=== PATIENT | male | born 1990 | race Caucasian/White ===

== ENCOUNTER 2016-09-27 14:06 | Inpatient (IN) | payer MEDICARE, MEDICAID ==
[~2016-09-27] VITALS: Ht 193 cm; Wt 106.9 kg
[~2016-09-27 14:06] MED LIST: NICOTINE 21 MG/24 HOUR PATCH TD SCH
[2016-09-27] MEDS ORDERED: PALI39DI IM (14:29)
[2016-09-27] MEDS ORDERED: SERT50TA12 PO (14:29)
[2016-09-27] MEDS ORDERED: ZOLPIDEM TARTRATE 10 MG TABLET PO PRN (18:15)
[2016-09-27] MEDS ORDERED: LORazepam 1 MG TABLET PO ONE (18:30)
[2016-09-27 19:14] LABS: BASOPHILS # (AUTO) 0.04 K/uL (0.00-0.20); BASOPHILS % (AUTO) 0.3 % (0.0-2.0); EOSINOPHILS # (AUTO) 0.11 K/uL (0.00-0.70); EOSINOPHILS % (AUTO) 0.94 % (1.0-6.0); HEMATOCRIT 46.2 % (41-53); HEMOGLOBIN 15.7 g/dL (13.5-17.5); LYMPHOCYTES # (AUTO) 2.2 K/uL (1.0-4.8); LYMPHOCYTES % (AUTO) 19.3 % (22.0-44.0); MEAN CORPUSCULAR HEMOGLOBIN 32.3 pg (26.0-34.0); MEAN CORPUSCULAR VOLUME 95 fL (80-100); MONOCYTES # (AUTO) 0.9 K/uL (0.1-1.0); MONOCYTES % (AUTO) 8.1 % (2.0-9.0); NEUTROPHILS # (AUTO) 8.1 K/uL (1.8-7.7); NEUTROPHILS % (AUTO) 71.3 % (40.0-70.0); PLATELET COUNT (AUTO) 253 K/uL (150-450); RED BLOOD CELL COUNT(AUTO) 4.86 MIL/uL (4.50-5.90); WHITE BLOOD COUNT (AUTO) 11.3 K/uL (4.5-11.0)
[2016-09-27 19:25] LABS: ANION GAP 9 mmol/L (8-16); CALCIUM, TOTAL 9.3 mg/dL (8.8-10.5); CARBON DIOXIDE 30 mmol/L (22-29); CHLORIDE 102 mmol/L (98-107); CREATININE 1.22 mg/dL (0.60-1.30); GLOMERULAR FILTR. RATE CALC > 60 mL/min (>60); POTASSIUM 4.3 mmol/L (3.5-5.1); SODIUM SERUM 141 mmol/L (136-145); UREA NITROGEN, BLOOD 10 mg/dL (7-18)
[2016-09-27 19:32] LABS: ALANINE AMINOTRANSFERASE 24 U/L (12-78); ALBUMIN 3.9 g/dL (3.4-5.0); ASPARTATE AMINOTRANSFERASE 18 U/L (15-37); BILIRUBIN,TOTAL 0.3 mg/dL (0.1-1.0); TOTAL PROTEIN, SERUM 7.6 g/dL (6.4-8.2)
[2016-09-27 20:02] VITALS: BP 126/91
[2016-09-28 05:22] VITALS: BP 119/86
[2016-09-28] MEDS: LORazepam 2 MG TABLET PO PRN ×2 (07:00→16:21)
[2016-09-28] MEDS: HALOPERIDOL 5 MG TABLET PO PRN (07:00)
[2016-09-28] MEDS: SERTRALINE HCL 100 MG TABLET PO SCH (08:05)
[2016-09-28] MEDS ORDERED: NICOTINE 21 MG/24 HOUR PATCH TD SCH (09:00)
[2016-09-28 10:18] VITALS: BP 129/76
[2016-09-28 16:23] VITALS: BP 113/72
[2016-09-29 07:03] LABS: BASOPHILS % (AUTO) 0.4 % (0.0-2.0); EOSINOPHILS % (AUTO) 0.8 % (1.0-6.0); HEMATOCRIT 47.8 % (41-53); HEMOGLOBIN 15.9 g/dL (13.5-17.5); LYMPHOCYTES # (AUTO) 1.7 K/uL (1.0-4.8); LYMPHOCYTES % (AUTO) 15.2 % (22.0-44.0); MEAN CORPUSCULAR HEMOGLOBIN 31.7 pg (26.0-34.0); MEAN CORPUSCULAR HGB CONC 33.3 G/dL (31.0-37.0); MEAN CORPUSCULAR VOLUME 95 fL (80-100); MONOCYTES # (AUTO) 0.8 K/uL (0.1-1.0); MONOCYTES % (AUTO) 6.8 % (2.0-9.0); NEUTROPHILS # (AUTO) 8.8 K/uL (1.8-7.7); NEUTROPHILS % (AUTO) 76.8 % (40.0-70.0); PLATELET COUNT (AUTO) 238 K/uL (150-450); RED BLOOD CELL COUNT(AUTO) 5.02 MIL/uL (4.50-5.90); RED CELL DISTRIBUTION WIDTH 14.4 % (11.5-14.5); WHITE BLOOD COUNT (AUTO) 11.5 K/uL (4.5-11.0)
[2016-09-29 07:36] LABS: CHOL/HDL RATIO 3.5 (4.2-7.3); CREATINE KINASE, TOTAL 50 U/L (39-308); THYROID STIMULATING HORMONE 1.11 uIU/mL (0.36-3.74)
[2016-09-29 07:56] LABS: HEMOGLOBIN A1C 5.2 % (4.5-6.2)
[2016-09-29 08:30] VITALS: BP 113/61
[2016-09-29] MEDS: SERTRALINE HCL 100 MG TABLET PO SCH (09:06)
[2016-09-29] MEDS ORDERED: NICOTINE 21 MG/24 HOUR PATCH TD PRN (09:09)
[2016-09-29] MEDS: LORazepam 2 MG TABLET PO PRN ×3 (09:28→17:51)
[2016-09-29] MEDS: HALOPERIDOL 5 MG TABLET PO PRN ×2 (12:17→17:51)
[2016-09-29 17:05] VITALS: BP 126/69
[2016-09-30 08:00] VITALS: BP 115/76
[2016-09-30] MEDS: SERTRALINE HCL 100 MG TABLET PO SCH (08:20)
[2016-09-30] MEDS: LORazepam 2 MG TABLET PO PRN ×2 (08:21→17:25)
[2016-09-30] MEDS: HALOPERIDOL 5 MG TABLET PO PRN ×2 (08:21→17:25)
[2016-09-30 08:30] VITALS: BP 105/62
[2016-09-30 13:11] LABS: HEPATITIS Bs ANTIGEN SCREEN P Negative (Negative); HEPATITIS C AB SCREEN <0.1 s/co ratio (0.0-0.9)
[2016-09-30 16:47] VITALS: BP 100/68
[2016-09-30 17:23] VITALS: BP 126/78
[2016-10-01 08:00] VITALS: BP 116/67
[2016-10-01] MEDS: SERTRALINE HCL 100 MG TABLET PO SCH (08:42)
[2016-10-01] MEDS: LORazepam 2 MG TABLET PO PRN (09:06)
[2016-10-01] MEDS ORDERED: ACETAMINOPHEN 325 MG TABLET PO PRN (11:45)
[2016-10-01 13:30] LABS: ADD UA MICROSCOPIC NO; APPEARANCE,URINE CLEAR (CLEAR); GLUCOSE, URINE (UA) NEGATIVE (NEGATIVE); KETONES,URINE NEGATIVE (NEGATIVE); LEUKOCYTE ESTERASE ,URINE NEGATIVE (NEGATIVE); OCCULT BLOOD,URINE NEGATIVE (NEGATIVE); PROTEIN,URINE NEGATIVE (NEGATIVE)
[2016-10-01] MEDS ORDERED: PALI78DI IM (15:41)
[2016-10-01] MEDS ORDERED: SERT100T12 PO (15:41)
== END 2016-10-01 18:30 | disposition home or self-care (01) | DRG 885 ==
LOC: EMS 14:08 → 3EX 19:53
DX: F25.1 Schizoaffective disorder, depressive type (principal); R45.851 Suicidal ideations; F17.210 Nicotine dependence, cigarettes, uncomplicated; K59.00 Constipation, unspecified; Z81.8 Family history of other mental and behavioral disorders; Z79.899 Other long term (current) drug therapy
CPT/HCPCS: 80074; 82306; 82607; 82746; 83036; 83735; 84439; 84443; 86592; 99285; G0480

== ENCOUNTER 2016-10-05 15:47 | Inpatient (IN) | payer MEDICARE, MEDICAID ==
[~2016-10-05] VITALS: Ht 190.5 cm; Wt 106.8 kg
[~2016-10-05 15:47] MED LIST changes: -NICOTINE 21 MG/24 HOUR PATCH TD SCH; +PALI78DI IM; +SERT100T12 PO
[2016-10-05] MEDS ORDERED: ZOLPIDEM TARTRATE 10 MG TABLET PO PRN (17:45)
[2016-10-05] MEDS ORDERED: LORazepam 2 MG TABLET PO ONE (18:00)
[2016-10-05 18:03] LABS: BASOPHILS % (AUTO) 0.1 % (0.0-2.0); EOSINOPHILS % (AUTO) 0.5 % (1.0-6.0); HEMATOCRIT 45.7 % (41-53); HEMOGLOBIN 15.2 g/dL (13.5-17.5); LYMPHOCYTES # (AUTO) 1.5 K/uL (1.0-4.8); LYMPHOCYTES % (AUTO) 11.4 % (22.0-44.0); MEAN CORPUSCULAR HEMOGLOBIN 31.5 pg (26.0-34.0); MEAN CORPUSCULAR HGB CONC 33.3 G/dL (31.0-37.0); MEAN CORPUSCULAR VOLUME 94 fL (80-100); MONOCYTES # (AUTO) 0.8 K/uL (0.1-1.0); MONOCYTES % (AUTO) 5.9 % (2.0-9.0); NEUTROPHILS # (AUTO) 10.8 K/uL (1.8-7.7); NEUTROPHILS % (AUTO) 82.1 % (40.0-70.0); PLATELET COUNT (AUTO) 252 K/uL (150-450); RED BLOOD CELL COUNT(AUTO) 4.83 MIL/uL (4.50-5.90); RED CELL DISTRIBUTION WIDTH 14.2 % (11.5-14.5); WHITE BLOOD COUNT (AUTO) 13.1 K/uL (4.5-11.0)
[2016-10-05 18:14] LABS: ANION GAP 9 mmol/L (8-16); CALCIUM, TOTAL 9.2 mg/dL (8.8-10.5); CARBON DIOXIDE 28 mmol/L (22-29); CHLORIDE 103 mmol/L (98-107); CREATININE 0.95 mg/dL (0.60-1.30); GLOMERULAR FILTR. RATE CALC > 60 mL/min (>60); POTASSIUM 3.9 mmol/L (3.5-5.1); SODIUM SERUM 140 mmol/L (136-145); UREA NITROGEN, BLOOD 9 mg/dL (7-18)
[2016-10-05 18:20] LABS: ALANINE AMINOTRANSFERASE 27 U/L (12-78); ALBUMIN 3.7 g/dL (3.4-5.0); ASPARTATE AMINOTRANSFERASE 15 U/L (15-37); BILIRUBIN,TOTAL 0.3 mg/dL (0.1-1.0); TOTAL PROTEIN, SERUM 7.6 g/dL (6.4-8.2)
[2016-10-05 20:59] VITALS: BP 135/80
[2016-10-05] MEDS ORDERED: INFLUENZA VIRUS VACCINE QVS 2016-17 (3YR+)/PF 60 MCG/0.5 ML SYRINGE IM ONE (21:00)
[2016-10-05] MEDS ORDERED: PNEUMOCOCCAL VACCINE POLYVALENT 0.5 ML VIAL [PPSV23] IM ONE (21:00)
[2016-10-06 06:11] VITALS: BP 116/66
[2016-10-06 08:05] VITALS: BP 124/78
[2016-10-06] MEDS: SERTRALINE HCL 100 MG TABLET PO SCH (08:34)
[2016-10-06] MEDS: HALOPERIDOL 5 MG TABLET PO PRN (09:51)
[2016-10-06] MEDS: LORazepam 2 MG TABLET PO PRN (09:51)
[2016-10-06 16:19] VITALS: BP 101/63
[2016-10-07 03:41] VITALS: BP 105/58
[2016-10-07 08:00] VITALS: BP 101/61
[2016-10-07] MEDS: SERTRALINE HCL 100 MG TABLET PO SCH (08:41)
[2016-10-07] MEDS: LORazepam 2 MG TABLET PO PRN ×2 (10:35→17:00)
[2016-10-07] MEDS: HALOPERIDOL 5 MG TABLET PO PRN (10:35)
[2016-10-07 16:04] VITALS: BP 105/63
[2016-10-08 00:03] VITALS: BP 106/60
[2016-10-08 08:39] VITALS: BP 116/64
[2016-10-08] MEDS ORDERED: PALIPERIDONE PALMITATE 234 MG/1.5 ML SYRINGE IM SCH (09:00)
[2016-10-08] MEDS ORDERED: PALIPERIDONE PALMITATE 78 MG/0.5 ML SYRINGE IM SCH (09:00)
[2016-10-08] MEDS ORDERED: PALI234D IM (12:30)
== END 2016-10-08 15:15 | disposition home or self-care (01) | DRG 885 ==
LOC: EMS 15:49 → B2S 17:52
DX: F25.1 Schizoaffective disorder, depressive type (principal); R45.851 Suicidal ideations; D72.828 Other elevated white blood cell count; F17.210 Nicotine dependence, cigarettes, uncomplicated; K59.00 Constipation, unspecified; Z79.899 Other long term (current) drug therapy; Z28.21 Immunization not carried out because of patient refusal
CPT/HCPCS: 87081; 99285; G0480

== ENCOUNTER 2016-10-09 17:31 | Inpatient (IN) | payer MEDICARE, MEDICAID ==
[~2016-10-09] VITALS: Ht 190.5 cm; Wt 106.3 kg
[~2016-10-09 17:31] MED LIST changes: +PALI234D IM; -PALI78DI IM; -SERT100T12 PO
[2016-10-09 19:02] VITALS: BP 132/74
[2016-10-09] MEDS ORDERED: INFLUENZA VIRUS VACCINE QVS 2016-17 (3YR+)/PF 60 MCG/0.5 ML SYRINGE IM ONE (19:15)
[2016-10-09 19:36] VITALS: BP 130/81
[2016-10-10 06:58] VITALS: BP 108/63
[2016-10-10 08:30] VITALS: BP 126/76
[2016-10-10] MEDS: LORazepam 2 MG TABLET PO PRN ×2 (08:30→16:15)
[2016-10-10] MEDS: HALOPERIDOL 5 MG TABLET PO PRN ×2 (08:30→16:16)
[2016-10-10] MEDS: NICOTINE 21 MG/24 HOUR PATCH TD SCH (09:17)
[2016-10-10 09:34] LABS: BASOPHILS % (AUTO) 0.6 % (0.0-2.0); EOSINOPHILS % (AUTO) 1.9 % (1.0-6.0); HEMATOCRIT 47.3 % (41-53); HEMOGLOBIN 15.5 g/dL (13.5-17.5); LYMPHOCYTES % (AUTO) 28.4 % (22.0-44.0); MEAN CORPUSCULAR HEMOGLOBIN 31.3 pg (26.0-34.0); MEAN CORPUSCULAR HGB CONC 32.8 G/dL (31.0-37.0); MEAN CORPUSCULAR VOLUME 96 fL (80-100); MONOCYTES # (AUTO) 0.7 K/uL (0.1-1.0); MONOCYTES % (AUTO) 9.5 % (2.0-9.0); NEUTROPHILS # (AUTO) 4.3 K/uL (1.8-7.7); NEUTROPHILS % (AUTO) 59.6 % (40.0-70.0); PLATELET COUNT (AUTO) 275 K/uL (150-450); RED BLOOD CELL COUNT(AUTO) 4.94 MIL/uL (4.50-5.90); RED CELL DISTRIBUTION WIDTH 14.2 % (11.5-14.5); WHITE BLOOD COUNT (AUTO) 7.2 K/uL (4.5-11.0)
[2016-10-10 09:57] LABS: ALANINE AMINOTRANSFERASE 27 U/L (12-78); ALBUMIN 3.5 g/dL (3.4-5.0); ANION GAP 11 mmol/L (8-16); ASPARTATE AMINOTRANSFERASE 15 U/L (15-37); BILIRUBIN,TOTAL 0.3 mg/dL (0.1-1.0); CALCIUM, TOTAL 8.5 mg/dL (8.8-10.5); CARBON DIOXIDE 27 mmol/L (22-29); CHLORIDE 105 mmol/L (98-107); GLOMERULAR FILTR. RATE CALC > 60 mL/min (>60); POTASSIUM 4.1 mmol/L (3.5-5.1); SODIUM SERUM 143 mmol/L (136-145); TOTAL PROTEIN, SERUM 7.2 g/dL (6.4-8.2); UREA NITROGEN, BLOOD 11 mg/dL (7-18)
[2016-10-10 10:33] LABS: APPEARANCE,URINE CLEAR (CLEAR); GLUCOSE, URINE (UA) NEGATIVE (NEGATIVE); KETONES,URINE NEGATIVE (NEGATIVE); LEUKOCYTE ESTERASE ,URINE NEGATIVE (NEGATIVE); OCCULT BLOOD,URINE NEGATIVE (NEGATIVE); PROTEIN,URINE NEGATIVE (NEGATIVE)
[2016-10-10 10:51] LABS: ADD UA MICROSCOPIC NO
[2016-10-10 16:00] VITALS: BP 110/66
[2016-10-11 06:42] VITALS: BP 108/66
[2016-10-11 08:27] VITALS: BP 105/72
[2016-10-11] MEDS: NICOTINE 21 MG/24 HOUR PATCH TD SCH (08:46)
[2016-10-11] MEDS: LORazepam 2 MG TABLET PO PRN ×2 (10:16→17:00)
[2016-10-11] MEDS: HALOPERIDOL 5 MG TABLET PO PRN ×2 (10:16→17:00)
[2016-10-11 16:09] VITALS: BP 112/69
[2016-10-11] MEDS: ZOLPIDEM TARTRATE 10 MG TABLET PO PRN (21:35)
[2016-10-12 06:30] VITALS: BP 106/62
[2016-10-12] MEDS: LORazepam 2 MG TABLET PO PRN ×2 (08:33→13:24)
[2016-10-12] MEDS: NICOTINE 21 MG/24 HOUR PATCH TD SCH (08:33)
[2016-10-12] MEDS: HALOPERIDOL 5 MG TABLET PO PRN ×2 (08:33→13:24)
[2016-10-12 09:34] VITALS: BP 124/68
[2016-10-12] MEDS: ESCITALOPRAM OXALATE 10 MG TABLET PO SCH (10:11)
[2016-10-12] MEDS: BusPIRone HCL 5 MG TABLET PO SCH ×2 (13:24→17:14)
[2016-10-12 16:20] VITALS: BP 114/66
[2016-10-13 05:55] VITALS: BP 104/63
[2016-10-13] MEDS: ESCITALOPRAM OXALATE 10 MG TABLET PO SCH (08:14)
[2016-10-13] MEDS: BusPIRone HCL 5 MG TABLET PO SCH ×3 (08:14→16:38)
[2016-10-13] MEDS: NICOTINE 21 MG/24 HOUR PATCH TD SCH (08:15)
[2016-10-13] MEDS: LORazepam 2 MG TABLET PO PRN ×2 (08:45→16:17)
[2016-10-13] MEDS: HALOPERIDOL 5 MG TABLET PO PRN ×2 (08:45→17:21)
[2016-10-13 08:49] VITALS: BP 94/57
[2016-10-13] MEDS ORDERED: BISACODYL 5 MG EC TABLET PO PRN (09:45)
[2016-10-13 16:03] VITALS: BP 106/67
[2016-10-13] MEDS: ZOLPIDEM TARTRATE 10 MG TABLET PO PRN (20:07)
[2016-10-14 07:15] VITALS: BP 116/66
[2016-10-14 08:13] VITALS: BP 106/70
[2016-10-14] MEDS: ESCITALOPRAM OXALATE 10 MG TABLET PO SCH (09:48)
[2016-10-14] MEDS: NICOTINE 21 MG/24 HOUR PATCH TD SCH (09:48)
[2016-10-14] MEDS: BusPIRone HCL 5 MG TABLET PO SCH ×2 (09:48→13:54)
[2016-10-14] MEDS ORDERED: ESCI10TA PO (15:09)
[2016-10-14] MEDS ORDERED: BUSP5TAB20 PO (15:09)
[2016-10-14 16:00] VITALS: BP 118/67
== END 2016-10-14 17:00 | disposition home or self-care (01) | DRG 885 ==
LOC: B3A 18:47 → EDSTATUS 18:53
PROVIDERS: ADMIT Psychiatry & Neurology Child & Adolescent Psychiatry
DX: F25.1 Schizoaffective disorder, depressive type (principal); R45.851 Suicidal ideations; D72.828 Other elevated white blood cell count; F17.200 Nicotine dependence, unspecified, uncomplicated; F41.9 Anxiety disorder, unspecified; I95.9 Hypotension, unspecified; R00.0 Tachycardia, unspecified; K59.00 Constipation, unspecified; Z71.89 Other specified counseling; Z28.21 Immunization not carried out because of patient refusal
CPT/HCPCS: 87081

== ENCOUNTER 2016-10-20 05:45 | Inpatient (IN) | payer MEDICARE, MEDICAID ==
[~2016-10-20] VITALS: Ht 190.5 cm; Wt 105.3 kg
[~2016-10-20 05:45] MED LIST changes: +BUSP5TAB20 PO; +ESCI10TA PO; -PALI234D IM
[2016-10-20 06:55] LABS: EOSINOPHILS # (AUTO) 0.03 K/uL (0.00-0.70); EOSINOPHILS % (AUTO) 0.24 % (1.0-6.0); HEMATOCRIT 47.6 % (41-53); LYMPHOCYTES # (AUTO) 0.5 K/uL (1.0-4.8); LYMPHOCYTES % (AUTO) 3.5 % (22.0-44.0); MEAN CORPUSCULAR HEMOGLOBIN 31.5 pg (26.0-34.0); MEAN CORPUSCULAR HGB CONC 33.5 G/dL (31.0-37.0); MEAN CORPUSCULAR VOLUME 94 fL (80-100); MONOCYTES # (AUTO) 1.2 K/uL (0.1-1.0); MONOCYTES % (AUTO) 8.7 % (2.0-9.0); NEUTROPHILS # (AUTO) 12.3 K/uL (1.8-7.7); NEUTROPHILS % (AUTO) 87.6 % (40.0-70.0); PLATELET COUNT (AUTO) 236 K/uL (150-450); RED BLOOD CELL COUNT(AUTO) 5.06 MIL/uL (4.50-5.90); RED CELL DISTRIBUTION WIDTH 14.9 % (11.5-14.5)
[2016-10-20 07:12] LABS: ANION GAP 14 mmol/L (8-16); CALCIUM, TOTAL 8.9 mg/dL (8.8-10.5); CARBON DIOXIDE 21 mmol/L (22-29); CHLORIDE 99 mmol/L (98-107); CREATININE 1.24 mg/dL (0.60-1.30); GLOMERULAR FILTR. RATE CALC > 60 mL/min (>60); POTASSIUM 3.5 mmol/L (3.5-5.1); SODIUM SERUM 134 mmol/L (136-145); UREA NITROGEN, BLOOD 9 mg/dL (7-18)
[2016-10-20 07:20] LABS: ALANINE AMINOTRANSFERASE 25 U/L (12-78); ALBUMIN 3.8 g/dL (3.4-5.0); ASPARTATE AMINOTRANSFERASE 17 U/L (15-37); BILIRUBIN,TOTAL 0.4 mg/dL (0.1-1.0); TOTAL PROTEIN, SERUM 7.7 g/dL (6.4-8.2)
[2016-10-20 07:35] LABS: RBC MORPHOLOGY COMMENT NORMAL RBC MORPH
[2016-10-20 14:41] VITALS: BP 119/77
[2016-10-20] MEDS ORDERED: INFLUENZA VIRUS VACCINE QVS 2016-17 (3YR+)/PF 60 MCG/0.5 ML SYRINGE IM ONE (14:45)
[2016-10-20] MEDS: BusPIRone HCL 5 MG TABLET PO SCH ×2 (14:56→17:55)
[2016-10-20 16:00] VITALS: BP 113/74
[2016-10-20] MEDS: ONDANSETRON HCL 4 MG TABLET PO PRN (17:55)
[2016-10-20] MEDS: LOPERAMIDE HCL 2 MG CAPSULE PO PRN (17:55)
[2016-10-21 01:00] VITALS: BP 105/60
[2016-10-21 08:02] VITALS: BP 105/60
[2016-10-21 08:27] LABS: BASOPHILS # (AUTO) 0.02 K/uL (0.00-0.20); BASOPHILS % (AUTO) 0.3 % (0.0-2.0); EOSINOPHILS # (AUTO) 0.07 K/uL (0.00-0.70); EOSINOPHILS % (AUTO) 1.22 % (1.0-6.0); HEMATOCRIT 45.7 % (41-53); HEMOGLOBIN 15.4 g/dL (13.5-17.5); LYMPHOCYTES % (AUTO) 17.4 % (22.0-44.0); MEAN CORPUSCULAR HEMOGLOBIN 31.7 pg (26.0-34.0); MEAN CORPUSCULAR HGB CONC 33.7 G/dL (31.0-37.0); MEAN CORPUSCULAR VOLUME 94 fL (80-100); MONOCYTES # (AUTO) 1.3 K/uL (0.1-1.0); MONOCYTES % (AUTO) 22.9 % (2.0-9.0); NEUTROPHILS # (AUTO) 3.3 K/uL (1.8-7.7); NEUTROPHILS % (AUTO) 58.1 % (40.0-70.0); PLATELET COUNT (AUTO) 224 K/uL (150-450); RED BLOOD CELL COUNT(AUTO) 4.87 MIL/uL (4.50-5.90); RED CELL DISTRIBUTION WIDTH 14.6 % (11.5-14.5); WHITE BLOOD COUNT (AUTO) 5.6 K/uL (4.5-11.0)
[2016-10-21] MEDS: PANTOPRAZOLE SODIUM 40 MG DR TABLET PO SCH (09:03)
[2016-10-21] MEDS: BusPIRone HCL 5 MG TABLET PO SCH ×3 (09:03→17:05)
[2016-10-21] MEDS: ESCITALOPRAM OXALATE 10 MG TABLET PO SCH (09:03)
[2016-10-21] MEDS: LOPERAMIDE HCL 2 MG CAPSULE PO PRN ×2 (13:17→18:33)
[2016-10-21 16:10] VITALS: BP 122/63
[2016-10-21] MEDS: ONDANSETRON HCL 4 MG TABLET PO PRN (18:33)
[2016-10-21] MEDS: ZOLPIDEM TARTRATE 10 MG TABLET PO PRN (20:51)
[2016-10-22 06:09] VITALS: BP 107/67
[2016-10-22 08:02] VITALS: BP 107/64
[2016-10-22] MEDS: BusPIRone HCL 5 MG TABLET PO SCH ×3 (08:34→17:02)
[2016-10-22] MEDS: ESCITALOPRAM OXALATE 10 MG TABLET PO SCH (08:34)
[2016-10-22] MEDS: PANTOPRAZOLE SODIUM 40 MG DR TABLET PO SCH (08:34)
[2016-10-22] MEDS ORDERED: ESCITALOPRAM OXALATE 10 MG TABLET PO ONE (10:15)
[2016-10-22] MEDS: LOPERAMIDE HCL 2 MG CAPSULE PO PRN ×2 (10:59→18:30)
[2016-10-22 16:10] VITALS: BP 109/64
[2016-10-22] MEDS: LORazepam 2 MG TABLET PO PRN (17:46)
[2016-10-22] MEDS: ZOLPIDEM TARTRATE 10 MG TABLET PO PRN (21:29)
[2016-10-23 00:02] VITALS: BP 103/63
[2016-10-23 08:02] VITALS: BP 124/54
[2016-10-23] MEDS: PANTOPRAZOLE SODIUM 40 MG DR TABLET PO SCH (08:31)
[2016-10-23] MEDS: BusPIRone HCL 5 MG TABLET PO SCH ×3 (08:32→16:45)
[2016-10-23] MEDS: ESCITALOPRAM OXALATE 10 MG TABLET PO SCH (08:32)
[2016-10-23] MEDS ORDERED: ESCITALOPRAM OXALATE 10 MG TABLET PO SCH (09:00)
[2016-10-23] MEDS: LORazepam 2 MG TABLET PO PRN (10:12)
[2016-10-23] MEDS: HALOPERIDOL 5 MG TABLET PO PRN (10:12)
[2016-10-23 16:02] VITALS: BP 115/64
[2016-10-23] MEDS: ZOLPIDEM TARTRATE 10 MG TABLET PO PRN (21:31)
[2016-10-24 01:45] VITALS: BP 114/72
[2016-10-24 08:02] VITALS: BP 116/68
[2016-10-24 08:31] LABS: BASOPHILS % (AUTO) 0.4 % (0.0-2.0); EOSINOPHILS % (AUTO) 1.2 % (1.0-6.0); HEMATOCRIT 42.3 % (41-53); HEMOGLOBIN 14.1 g/dL (13.5-17.5); LYMPHOCYTES # (AUTO) 1.7 K/uL (1.0-4.8); LYMPHOCYTES % (AUTO) 30.9 % (22.0-44.0); MEAN CORPUSCULAR HEMOGLOBIN 31.4 pg (26.0-34.0); MEAN CORPUSCULAR HGB CONC 33.3 G/dL (31.0-37.0); MEAN CORPUSCULAR VOLUME 94 fL (80-100); MONOCYTES # (AUTO) 0.6 K/uL (0.1-1.0); MONOCYTES % (AUTO) 11.6 % (2.0-9.0); NEUTROPHILS # (AUTO) 3.1 K/uL (1.8-7.7); NEUTROPHILS % (AUTO) 55.9 % (40.0-70.0); PLATELET COUNT (AUTO) 236 K/uL (150-450); RED BLOOD CELL COUNT(AUTO) 4.48 MIL/uL (4.50-5.90); RED CELL DISTRIBUTION WIDTH 13.8 % (11.5-14.5); WHITE BLOOD COUNT (AUTO) 5.5 K/uL (4.5-11.0)
[2016-10-24] MEDS: PANTOPRAZOLE SODIUM 40 MG DR TABLET PO SCH (08:39)
[2016-10-24] MEDS: ESCITALOPRAM OXALATE 10 MG TABLET PO SCH (08:39)
[2016-10-24] MEDS: BusPIRone HCL 5 MG TABLET PO SCH ×3 (08:39→16:32)
[2016-10-24 08:43] LABS: ANION GAP 7 mmol/L (8-16); CALCIUM, TOTAL 8.5 mg/dL (8.8-10.5); CARBON DIOXIDE 29 mmol/L (22-29); CHLORIDE 106 mmol/L (98-107); CREATININE 0.98 mg/dL (0.60-1.30); GLOMERULAR FILTR. RATE CALC > 60 mL/min (>60); POTASSIUM 4.2 mmol/L (3.5-5.1); SODIUM SERUM 142 mmol/L (136-145); UREA NITROGEN, BLOOD 15 mg/dL (7-18)
[2016-10-24 10:02] LABS: CREATINE KINASE, TOTAL 58 U/L (39-308)
[2016-10-24 16:03] VITALS: BP 130/83
[2016-10-24] MEDS: LORazepam 2 MG TABLET PO PRN (17:35)
[2016-10-24] MEDS: ZOLPIDEM TARTRATE 10 MG TABLET PO PRN (20:56)
[2016-10-25 00:52] VITALS: BP 103/60
[2016-10-25 08:02] VITALS: BP 105/56
[2016-10-25] MEDS: BusPIRone HCL 5 MG TABLET PO SCH ×3 (08:30→16:53)
[2016-10-25] MEDS: ESCITALOPRAM OXALATE 10 MG TABLET PO SCH (08:31)
[2016-10-25] MEDS: PANTOPRAZOLE SODIUM 40 MG DR TABLET PO SCH (08:31)
[2016-10-25 09:36] LABS: BASOPHILS % (AUTO) 0.6 % (0.0-2.0); EOSINOPHILS % (AUTO) 1.4 % (1.0-6.0); HEMATOCRIT 43.5 % (41-53); HEMOGLOBIN 14.3 g/dL (13.5-17.5); LYMPHOCYTES # (AUTO) 1.9 K/uL (1.0-4.8); LYMPHOCYTES % (AUTO) 35.3 % (22.0-44.0); MEAN CORPUSCULAR HEMOGLOBIN 31.1 pg (26.0-34.0); MEAN CORPUSCULAR HGB CONC 32.8 G/dL (31.0-37.0); MEAN CORPUSCULAR VOLUME 95 fL (80-100); MONOCYTES # (AUTO) 0.5 K/uL (0.1-1.0); MONOCYTES % (AUTO) 9.3 % (2.0-9.0); NEUTROPHILS # (AUTO) 2.9 K/uL (1.8-7.7); NEUTROPHILS % (AUTO) 53.4 % (40.0-70.0); PLATELET COUNT (AUTO) 233 K/uL (150-450); RED BLOOD CELL COUNT(AUTO) 4.59 MIL/uL (4.50-5.90); RED CELL DISTRIBUTION WIDTH 14.3 % (11.5-14.5); WHITE BLOOD COUNT (AUTO) 5.5 K/uL (4.5-11.0)
[2016-10-25] MEDS: LORazepam 2 MG TABLET PO PRN (15:51)
[2016-10-25 16:02] VITALS: BP 114/65
[2016-10-25] MEDS: ZOLPIDEM TARTRATE 10 MG TABLET PO PRN (20:50)
[2016-10-26 00:02] VITALS: BP 102/61
[2016-10-26 08:02] VITALS: BP 107/56
[2016-10-26] MEDS: PANTOPRAZOLE SODIUM 40 MG DR TABLET PO SCH (08:38)
[2016-10-26] MEDS: ESCITALOPRAM OXALATE 10 MG TABLET PO SCH (08:38)
[2016-10-26] MEDS: BusPIRone HCL 5 MG TABLET PO SCH ×3 (08:38→16:33)
[2016-10-26] MEDS: LORazepam 2 MG TABLET PO PRN (13:59)
[2016-10-26 16:02] VITALS: BP 119/71
[2016-10-26] MEDS: ZOLPIDEM TARTRATE 10 MG TABLET PO PRN (21:10)
[2016-10-27 05:19] VITALS: BP 117/60
[2016-10-27 08:03] VITALS: BP 102/67
[2016-10-27] MEDS: PANTOPRAZOLE SODIUM 40 MG DR TABLET PO SCH (08:21)
[2016-10-27] MEDS: ESCITALOPRAM OXALATE 10 MG TABLET PO SCH (08:21)
[2016-10-27] MEDS: BusPIRone HCL 5 MG TABLET PO SCH ×3 (08:21→16:31)
[2016-10-27] MEDS: LORazepam 2 MG TABLET PO PRN ×2 (10:05→18:02)
[2016-10-27 16:12] VITALS: BP 106/65
[2016-10-28 01:23] VITALS: BP 102/61
[2016-10-28 08:02] VITALS: BP 119/60
[2016-10-28] MEDS: BusPIRone HCL 5 MG TABLET PO SCH ×3 (08:34→16:41)
[2016-10-28] MEDS: ESCITALOPRAM OXALATE 10 MG TABLET PO SCH (08:34)
[2016-10-28] MEDS: PANTOPRAZOLE SODIUM 40 MG DR TABLET PO SCH (08:34)
[2016-10-28] MEDS: LORazepam 2 MG TABLET PO PRN (12:31)
[2016-10-28] MEDS: HALOPERIDOL 5 MG TABLET PO PRN (15:53)
[2016-10-28 16:11] VITALS: BP 127/83
[2016-10-28 19:00] VITALS: BP 131/76
[2016-10-28] MEDS: IBUPROFEN 600 MG TABLET PO PRN (19:03)
[2016-10-28 21:09] VITALS: BP 113/84
[2016-10-28] MEDS: ACETAMINOPHEN 325 MG TABLET PO PRN (21:09)
[2016-10-28] MEDS: ZOLPIDEM TARTRATE 10 MG TABLET PO PRN (21:11)
[2016-10-29 00:13] VITALS: BP 102/71
[2016-10-29 08:07] VITALS: BP 109/63
[2016-10-29] MEDS: PANTOPRAZOLE SODIUM 40 MG DR TABLET PO SCH (08:35)
[2016-10-29] MEDS: BusPIRone HCL 5 MG TABLET PO SCH ×3 (08:35→16:31)
[2016-10-29] MEDS: ESCITALOPRAM OXALATE 10 MG TABLET PO SCH (08:35)
[2016-10-29] MEDS: LORazepam 2 MG TABLET PO PRN ×2 (12:39→18:41)
[2016-10-29 16:07] VITALS: BP 117/74
[2016-10-29 19:41] VITALS: BP 122/82
[2016-10-29] MEDS: IBUPROFEN 600 MG TABLET PO PRN (19:44)
[2016-10-29] MEDS: ZOLPIDEM TARTRATE 10 MG TABLET PO PRN (20:49)
[2016-10-30 00:02] VITALS: BP 103/61
[2016-10-30] MEDS: BusPIRone HCL 5 MG TABLET PO SCH ×3 (08:13→16:44)
[2016-10-30] MEDS: PANTOPRAZOLE SODIUM 40 MG DR TABLET PO SCH (08:13)
[2016-10-30] MEDS: ESCITALOPRAM OXALATE 10 MG TABLET PO SCH (08:13)
[2016-10-30 08:46] VITALS: BP 103/62
[2016-10-30 10:00] VITALS: BP 122/71
[2016-10-30] MEDS: LORazepam 2 MG TABLET PO PRN ×2 (10:00→14:12)
[2016-10-30 16:02] VITALS: BP 107/72
[2016-10-30] MEDS: ZOLPIDEM TARTRATE 10 MG TABLET PO PRN (20:43)
[2016-10-31 00:30] VITALS: BP 108/64
[2016-10-31 08:02] VITALS: BP 109/67
[2016-10-31] MEDS: BusPIRone HCL 5 MG TABLET PO SCH ×3 (08:23→16:32)
[2016-10-31] MEDS: ESCITALOPRAM OXALATE 10 MG TABLET PO SCH (08:23)
[2016-10-31] MEDS: PANTOPRAZOLE SODIUM 40 MG DR TABLET PO SCH (08:23)
[2016-10-31] MEDS: LORazepam 2 MG TABLET PO PRN ×2 (11:02→17:06)
[2016-10-31 16:04] VITALS: BP 105/66
[2016-10-31 17:00] VITALS: BP 109/68
[2016-10-31 19:31] VITALS: BP 125/76
[2016-10-31] MEDS: IBUPROFEN 600 MG TABLET PO PRN (19:32)
[2016-10-31] MEDS: ZOLPIDEM TARTRATE 10 MG TABLET PO PRN (20:50)
[2016-11-01 00:02] VITALS: BP 109/68
[2016-11-01 03:18] VITALS: BP 107/77
[2016-11-01] MEDS: LORazepam 2 MG TABLET PO PRN ×3 (03:20→16:20)
[2016-11-01] MEDS: IBUPROFEN 600 MG TABLET PO PRN ×2 (03:21→10:46)
[2016-11-01 08:02] VITALS: BP 110/54
[2016-11-01] MEDS: PANTOPRAZOLE SODIUM 40 MG DR TABLET PO SCH (08:40)
[2016-11-01] MEDS: BusPIRone HCL 5 MG TABLET PO SCH ×3 (08:40→16:20)
[2016-11-01] MEDS: ESCITALOPRAM OXALATE 10 MG TABLET PO SCH (08:40)
[2016-11-01 10:46] VITALS: BP 114/62
[2016-11-01 16:18] VITALS: BP 109/84
[2016-11-01] MEDS: DOXYCYCLINE 100 MG CAPSULE PO SCH (16:20)
[2016-11-01 18:42] VITALS: BP 118/86
[2016-11-01] MEDS: ACETAMINOPHEN 325 MG TABLET PO PRN (18:43)
[2016-11-01] MEDS: ZOLPIDEM TARTRATE 10 MG TABLET PO PRN (20:53)
[2016-11-02 00:23] VITALS: BP 108/75
[2016-11-02] MEDS: IBUPROFEN 600 MG TABLET PO PRN ×2 (00:28→08:42)
[2016-11-02] MEDS: LORazepam 2 MG TABLET PO PRN (00:28)
[2016-11-02 01:28] VITALS: BP 110/79
[2016-11-02] MEDS: BusPIRone HCL 5 MG TABLET PO SCH (08:42)
[2016-11-02] MEDS: DOXYCYCLINE 100 MG CAPSULE PO SCH (08:42)
[2016-11-02] MEDS: ESCITALOPRAM OXALATE 10 MG TABLET PO SCH (08:42)
[2016-11-02] MEDS: PANTOPRAZOLE SODIUM 40 MG DR TABLET PO SCH (08:42)
[2016-11-02 08:44] VITALS: BP 106/63
[2016-11-02] MEDS ORDERED: DOXY100C PO (08:54)
[2016-11-02] MEDS ORDERED: PANT40TA25 PO (08:54)
[2016-11-02] MEDS ORDERED: BUSP5TAB20 PO (09:06)
[2016-11-02] MEDS ORDERED: ESCI10TA PO (09:06)
[2016-11-05] MEDS ORDERED: PALIPERIDONE PALMITATE 234 MG/1.5 ML SYRINGE IM SCH ×2 (09:00→21:00)
== END 2016-11-02 10:00 | disposition home or self-care (01) | DRG 885 ==
LOC: EMS 05:48 → B2X 13:02
DX: F25.1 Schizoaffective disorder, depressive type (principal); E87.1 Hypo-osmolality and hyponatremia; R45.851 Suicidal ideations; E83.51 Hypocalcemia; F41.9 Anxiety disorder, unspecified; F17.210 Nicotine dependence, cigarettes, uncomplicated; R19.7 Diarrhea, unspecified; F31.9 Bipolar disorder, unspecified; K21.9 Gastro-esophageal reflux disease without esophagitis; K29.70 Gastritis, unspecified, without bleeding; Z79.899 Other long term (current) drug therapy; Z91.14 Patient's other noncompliance with medication regimen; Z28.21 Immunization not carried out because of patient refusal
CPT/HCPCS: 83735; 87081; 99285; G0480; Q0162

== ENCOUNTER 2016-11-13 09:56 | Emergency (ER) | payer MEDICARE, OTHER ==
[~2016-11-13] VITALS: Ht 190.5 cm; Wt 97.7 kg
[~2016-11-13 09:56] MED LIST changes: +DOXY100C PO; +PANT40TA25 PO
[2016-11-13 10:34] LABS: BASOPHILS % (AUTO) 0.3 % (0.0-2.0); EOSINOPHILS % (AUTO) 0.2 % (1.0-6.0); HEMATOCRIT 43.1 % (41-53); HEMOGLOBIN 14.3 g/dL (13.5-17.5); LYMPHOCYTES # (AUTO) 1.3 K/uL (1.0-4.8); LYMPHOCYTES % (AUTO) 10.9 % (22.0-44.0); MEAN CORPUSCULAR HEMOGLOBIN 31.4 pg (26.0-34.0); MEAN CORPUSCULAR HGB CONC 33.1 G/dL (31.0-37.0); MEAN CORPUSCULAR VOLUME 95 fL (80-100); MONOCYTES # (AUTO) 0.8 K/uL (0.1-1.0); MONOCYTES % (AUTO) 6.7 % (2.0-9.0); NEUTROPHILS # (AUTO) 9.4 K/uL (1.8-7.7); NEUTROPHILS % (AUTO) 81.9 % (40.0-70.0); PLATELET COUNT (AUTO) 262 K/uL (150-450); RED BLOOD CELL COUNT(AUTO) 4.55 MIL/uL (4.50-5.90); RED CELL DISTRIBUTION WIDTH 14.3 % (11.5-14.5); WHITE BLOOD COUNT (AUTO) 11.5 K/uL (4.5-11.0)
[2016-11-13 10:45] LABS: ANION GAP 5 mmol/L (8-16); CALCIUM, TOTAL 8.7 mg/dL (8.8-10.5); CARBON DIOXIDE 30 mmol/L (22-29); CHLORIDE 102 mmol/L (98-107); CREATININE 1.07 mg/dL (0.60-1.30); GLOMERULAR FILTR. RATE CALC > 60 mL/min (>60); POTASSIUM 3.6 mmol/L (3.5-5.1); SODIUM SERUM 137 mmol/L (136-145); UREA NITROGEN, BLOOD 7 mg/dL (7-18)
[2016-11-13 10:51] LABS: ALANINE AMINOTRANSFERASE 21 U/L (12-78); ALBUMIN 3.4 g/dL (3.4-5.0); ASPARTATE AMINOTRANSFERASE 12 U/L (15-37); BILIRUBIN,TOTAL 0.2 mg/dL (0.1-1.0); TOTAL PROTEIN, SERUM 6.5 g/dL (6.4-8.2)
[2016-11-13] MEDS ORDERED: LORazepam 2 MG TABLET PO ONE (12:15)
[2016-11-13 12:26] VITALS: BP 122/87
== END 2016-11-13 12:33 | disposition home or self-care (01) ==
LOC: EMS 09:59
DX: F25.9 Schizoaffective disorder, unspecified (principal); F32.9 Major depressive disorder, single episode, unspecified; F17.210 Nicotine dependence, cigarettes, uncomplicated
CPT/HCPCS: 36415; 80053; 80307; 85025; 99284; G0480

== ENCOUNTER 2018-02-27 18:56 | Emergency (ER) | payer MEDICARE, OTHER ==
[~2018-02-27] VITALS: Ht 193 cm; Wt 104.5 kg
[~2018-02-27 18:56] MED LIST changes: -DOXY100C PO; -PANT40TA25 PO
[2018-02-27 21:18] LABS: BASOPHILS % (AUTO) 0.4 % (0.0-2.0); HEMATOCRIT 43.4 % (41-53); HEMOGLOBIN 14.9 g/dL (13.5-17.5); LYMPHOCYTES # (AUTO) 2.2 K/uL (1.0-4.8); LYMPHOCYTES % (AUTO) 21.1 % (22.0-44.0); MEAN CORPUSCULAR HEMOGLOBIN 32.4 pg (26.0-34.0); MEAN CORPUSCULAR HGB CONC 34.5 G/dL (31.0-37.0); MEAN CORPUSCULAR VOLUME 94 fL (80-100); MONOCYTES % (AUTO) 9.4 % (2.0-9.0); NEUTROPHILS # (AUTO) 7.1 K/uL (1.8-7.7); NEUTROPHILS % (AUTO) 68.1 % (40.0-70.0); PLATELET COUNT (AUTO) 248 K/uL (150-450); RED BLOOD CELL COUNT(AUTO) 4.61 MIL/uL (4.50-5.90); RED CELL DISTRIBUTION WIDTH 13.3 % (11.5-14.5)
[2018-02-27 21:22] LABS: ANION GAP 8 mmol/L (8-16); CALCIUM, TOTAL 9.1 mg/dL (8.8-10.5); CARBON DIOXIDE 30 mmol/L (22-29); CHLORIDE 102 mmol/L (98-107); CREATININE 1.14 mg/dL (0.60-1.30); GLOMERULAR FILTR. RATE CALC > 60 mL/min (>60); GLUCOSE,RANDOM 99 mg/dL (70-110); POTASSIUM 3.8 mmol/L (3.5-5.1); SODIUM SERUM 140 mmol/L (136-145); UREA NITROGEN, BLOOD 10 mg/dL (7-18)
[2018-02-27 21:26] LABS: PROTHROMBIN TIME 10.1 SEC (9.4-11.6)
[2018-02-27 21:47] LABS: ALANINE AMINOTRANSFERASE 29 U/L (12-78); ALBUMIN 3.7 g/dL (3.4-5.0); ALKALINE PHOSPHATASE 98 U/L (46-116); ASPARTATE AMINOTRANSFERASE 18 U/L (15-37); BILIRUBIN,TOTAL 0.3 mg/dL (0.1-1.0); CREATINE KINASE MB 1.1 ng/mL (0-5); CREATINE KINASE, TOTAL 131 U/L (39-308)
[2018-02-27] MEDS ORDERED: LORazepam 1 MG TABLET PO ONE (22:15)
[2018-02-27 22:30] LABS: AMPHET/METH SCREEN,URINE NEGATIVE (NEGATIVE); BARBITURATE SCREEN, URINE NEGATIVE (NEGATIVE); BENZODIAZEPINES SCREEN,URINE NEGATIVE (NEGATIVE); CANNABINOID SCREEN,URINE NEGATIVE (NEGATIVE); COCAINE SCREEN,URINE NEGATIVE (NEGATIVE); METHADONE SCREEN, URINE NEGATIVE (NEGATIVE); OPIATE SCREEN,URINE NEGATIVE (NEGATIVE)
[2018-02-27 22:34] LABS: PHENCYCLIDINE SCREEN,URINE NEGATIVE (NEGATIVE)
[2018-02-28 00:04] VITALS: BP 125/79
== END 2018-02-28 00:07 | disposition home or self-care (01) ==
LOC: EMS 18:57
DX: F41.9 Anxiety disorder, unspecified (principal); F25.9 Schizoaffective disorder, unspecified; F32.9 Major depressive disorder, single episode, unspecified; F17.210 Nicotine dependence, cigarettes, uncomplicated; Z79.899 Other long term (current) drug therapy
CPT/HCPCS: 93005; 99285; 99406

== ENCOUNTER 2019-09-17 11:48 | Inpatient (IN) | payer MEDICARE, MEDICAID ==
[~2019-09-17] VITALS: Ht 190.5 cm; Wt 99.8 kg
[~2019-09-17 11:48] MED LIST changes: +FLUT1BLS IH; +GABA-531 PO; +IPRAHFA IH; +QUET200T PO; +QUET25TA PO; +TRAZ-257 PO
[2019-09-17 13:17] LABS: BASOPHILS % (AUTO) 0.6 % (0.0-2.0); EOSINOPHILS % (AUTO) 0.1 % (1.0-6.0); HEMATOCRIT 44.7 % (41-53); LYMPHOCYTES # (AUTO) 1.5 K/uL (1.0-4.8); LYMPHOCYTES % (AUTO) 12.7 % (22.0-44.0); MEAN CORPUSCULAR HEMOGLOBIN 32.4 pg (26.0-34.0); MEAN CORPUSCULAR HGB CONC 33.5 G/dL (31.0-37.0); MEAN CORPUSCULAR VOLUME 97 fL (80-100); MONOCYTES # (AUTO) 0.7 K/uL (0.1-1.0); MONOCYTES % (AUTO) 5.7 % (2.0-9.0); NEUTROPHILS # (AUTO) 9.8 K/uL (1.8-7.7); NEUTROPHILS % (AUTO) 80.9 % (40.0-70.0); PLATELET COUNT (AUTO) 225 K/uL (150-450); RED BLOOD CELL COUNT(AUTO) 4.61 MIL/uL (4.50-5.90); RED CELL DISTRIBUTION WIDTH 13.8 % (11.5-14.5)
[2019-09-17] MEDS ORDERED: IPRATROPIUM BROMIDE 0.5 MG/2.5 ML NEB SOLUTION NEB ONE (13:30)
[2019-09-17] MEDS ORDERED: ALBUTEROL SULFATE 2.5 MG/0.5 ML NEB SOLUTION NEB ONE (13:30)
[2019-09-17] MEDS ORDERED: HALOPERIDOL 5 MG TABLET PO PRN (13:30)
[2019-09-17] MEDS ORDERED: LORazepam 2 MG TABLET PO PRN (13:30)
[2019-09-17] MEDS ORDERED: ZOLPIDEM TARTRATE 10 MG TABLET PO PRN (13:30)
[2019-09-17] MEDS ORDERED: DiphenhydrAMINE HCL 50 MG/ML VIAL IM ONE (13:30)
[2019-09-17] MEDS ORDERED: HALOPERIDOL LACTATE 5 MG/ML VIAL IM ONE (13:30)
[2019-09-17] MEDS ORDERED: LORazepam 2 MG/ML VIAL IM ONE (13:30)
[2019-09-17 13:36] LABS: ANION GAP 11 mmol/L (8-16); CALCIUM, TOTAL 9.2 mg/dL (8.8-10.5); CARBON DIOXIDE 26 mmol/L (22-29); CHLORIDE 100 mmol/L (98-107); CREATININE 0.99 mg/dL (0.60-1.30); GLOMERULAR FILTR. RATE CALC > 60 mL/min (>60); GLUCOSE,RANDOM 98 mg/dL (70-110); POTASSIUM 3.7 mmol/L (3.5-5.1); SODIUM SERUM 137 mmol/L (136-145); UREA NITROGEN, BLOOD 10 mg/dL (7-18)
[2019-09-17 13:41] LABS: ALANINE AMINOTRANSFERASE 23 U/L (12-78); ALBUMIN 4.1 g/dL (3.4-5.0); ALKALINE PHOSPHATASE 88 U/L (46-116); ASPARTATE AMINOTRANSFERASE 15 U/L (15-37); BILIRUBIN,TOTAL 0.4 mg/dL (0.1-1.0); TOTAL PROTEIN, SERUM 7.2 g/dL (6.4-8.2)
[2019-09-17 13:45] LABS: AMPHET/METH SCREEN,URINE NEGATIVE (NEGATIVE); BARBITURATE SCREEN, URINE NEGATIVE (NEGATIVE); BENZODIAZEPINES SCREEN,URINE NEGATIVE (NEGATIVE); CANNABINOID SCREEN,URINE NEGATIVE (NEGATIVE); COCAINE SCREEN,URINE NEGATIVE (NEGATIVE); METHADONE SCREEN, URINE NEGATIVE (NEGATIVE); OPIATE SCREEN,URINE NEGATIVE (NEGATIVE); PHENCYCLIDINE SCREEN,URINE NEGATIVE (NEGATIVE)
[2019-09-17 13:48] LABS: APPEARANCE,URINE CLEAR (CLEAR); BILIRUBIN,URINE NEGATIVE (NEGATIVE); GLUCOSE, URINE (UA) NEGATIVE (NEGATIVE); KETONES,URINE TRACE mg/dL (NEGATIVE); LEUKOCYTE ESTERASE ,URINE NEGATIVE (NEGATIVE); NITRATE,URINE NEGATIVE (NEGATIVE); OCCULT BLOOD,URINE NEGATIVE (NEGATIVE); PROTEIN,URINE NEGATIVE (NEGATIVE); UROBILINOGEN,URINE 0.2 mg/dL (<=1.0)
[2019-09-17 17:27] VITALS: BP 107/68
[2019-09-17] MEDS ORDERED: PETROLATUM,WHITE 28 GM JELLY TP PRN (17:45)
[2019-09-17] MEDS ORDERED: MAG HYDROX/AL HYDROX/SIMETH ES 30 ML SUSPENSION UDCUP PO PRN (17:45)
[2019-09-17] MEDS ORDERED: CloNIDine HCL 0.1 MG TABLET PO PRN (17:45)
[2019-09-17] MEDS ORDERED: LOPERAMIDE HCL 2 MG CAPSULE PO PRN (17:45)
[2019-09-17] MEDS ORDERED: ACETAMINOPHEN 325 MG TABLET PO PRN (17:45)
[2019-09-17] MEDS ORDERED: ONDANSETRON HCL 4 MG TABLET PO PRN (17:45)
[2019-09-17] MEDS ORDERED: MAGNESIUM HYDROXIDE SUSPENSION 30 ML UDCUP PO PRN (17:45)
[2019-09-17] MEDS ORDERED: GuaiFENesin/D-METHORPHAN [SUGAR-FREE] 200-20MG/10 ML SYRUP UDCUP PO PRN (17:45)
[2019-09-17] MEDS ORDERED: IBUPROFEN 400 MG TABLET PO PRN (17:45)
[2019-09-17] MEDS ORDERED: DOCUSATE SODIUM 100 MG CAPSULE PO PRN (17:45)
[2019-09-18] MEDS ORDERED: INFLUENZA VIRUS VACCINE QVS 2019-20 (3YR+)/PF 60 MCG/0.5 ML SYRINGE IM ONE (01:45)
[2019-09-18 03:29] VITALS: BP 112/65
[2019-09-18 07:29] LABS: BASOPHILS % (AUTO) 0.2 % (0.0-2.0); EOSINOPHILS % (AUTO) 1.2 % (1.0-6.0); HEMOGLOBIN 15.5 g/dL (13.5-17.5); LYMPHOCYTES # (AUTO) 1.9 K/uL (1.0-4.8); LYMPHOCYTES % (AUTO) 25.5 % (22.0-44.0); MEAN CORPUSCULAR HEMOGLOBIN 33.1 pg (26.0-34.0); MEAN CORPUSCULAR HGB CONC 33.6 G/dL (31.0-37.0); MEAN CORPUSCULAR VOLUME 98 fL (80-100); MONOCYTES # (AUTO) 0.7 K/uL (0.1-1.0); MONOCYTES % (AUTO) 9.3 % (2.0-9.0); NEUTROPHILS # (AUTO) 4.8 K/uL (1.8-7.7); NEUTROPHILS % (AUTO) 63.8 % (40.0-70.0); PLATELET COUNT (AUTO) 250 K/uL (150-450); RED BLOOD CELL COUNT(AUTO) 4.68 MIL/uL (4.50-5.90); RED CELL DISTRIBUTION WIDTH 14.1 % (11.5-14.5)
[2019-09-18 07:49] LABS: HEMOGLOBIN A1C 5.1 % (3.8-5.6)
[2019-09-18 08:02] LABS: ALANINE AMINOTRANSFERASE 23 U/L (12-78); ALBUMIN 3.9 g/dL (3.4-5.0); ALKALINE PHOSPHATASE 84 U/L (46-116); ANION GAP 11 mmol/L (8-16); ASPARTATE AMINOTRANSFERASE 21 U/L (15-37); BILIRUBIN,TOTAL 0.4 mg/dL (0.1-1.0); CALCIUM, TOTAL 9.5 mg/dL (8.8-10.5); CARBON DIOXIDE 26 mmol/L (22-29); CHLORIDE 107 mmol/L (98-107); CHOL/HDL RATIO 3.9 (4.2-7.3); CHOLESTEROL 139 mg/dL (131-200); CREATININE 1.17 mg/dL (0.60-1.30); FREE T4 (FREE THYROXINE) 1.29 ng/dL (0.76-1.46); GLOMERULAR FILTR. RATE CALC > 60 mL/min (>60); GLUCOSE,RANDOM 95 mg/dL (70-110); HDL CHOLESTEROL 36 mg/dL (40-60); LDL CHOL (CALC.) 87 mg/dL (0-130); SODIUM SERUM 144 mmol/L (136-145); THYROID STIMULATING HORMONE 1.01 uIU/mL (0.36-3.74); TOTAL PROTEIN, SERUM 7.3 g/dL (6.4-8.2); TRIGLYCERIDES 78 mg/dL (15-150); UREA NITROGEN, BLOOD 13 mg/dL (7-18)
[2019-09-18 08:47] VITALS: BP 118/82
[2019-09-18] MEDS ORDERED: IPRATROPIUM BROMIDE HFA 17 MCG/PUFF 12.9 GM INHALER IH SCH (09:00)
[2019-09-18] MEDS: IPRATROPIUM BROMIDE HFA 17 MCG/PUFF 12.9 GM INHALER IH SCH (09:48)
[2019-09-18] MEDS: FLUTICASONE/VILANTEROL 200-25 MCG/INH INHALER [14] IH SCH (09:48)
[2019-09-18] MEDS: NICOTINE 14 MG/24 HOUR PATCH TD SCH (09:49)
[2019-09-18] MEDS: ALBUTEROL SULFATE HFA 90 MCG/PUFF 8 GM INHALER IH PRN (13:18)
[2019-09-18 16:05] VITALS: BP 126/76
[2019-09-19] MEDS: ALBUTEROL SULFATE HFA 90 MCG/PUFF 8 GM INHALER IH PRN (04:46)
[2019-09-19] MEDS: NICOTINE 14 MG/24 HOUR PATCH TD SCH (08:11)
[2019-09-19 08:30] VITALS: BP 136/80
[2019-09-19] MEDS: FLUTICASONE/VILANTEROL 200-25 MCG/INH INHALER [14] IH SCH (09:55)
[2019-09-19] MEDS: IPRATROPIUM BROMIDE HFA 17 MCG/PUFF 12.9 GM INHALER IH SCH (09:55)
[2019-09-19] MEDS ORDERED: FLUT1AER IH (11:32)
[2019-09-19] MEDS ORDERED: IPRAHFA IH (11:32)
== END 2019-09-19 13:00 | disposition home or self-care (01) | DRG 885 ==
LOC: EMS 11:50 → B2X 15:33
PROVIDERS: ADMIT Psychiatry & Neurology Psychiatry; ATTEND Psychiatry & Neurology Psychiatry
DX: F25.1 Schizoaffective disorder, depressive type (principal); R45.851 Suicidal ideations; F17.210 Nicotine dependence, cigarettes, uncomplicated; I10 Essential (primary) hypertension; J45.909 Unspecified asthma, uncomplicated; Z28.21 Immunization not carried out because of patient refusal
CPT/HCPCS: 83036; 84439; 84443; 94640; 96372; G0480; J1200; J1630; J2060; J3535

== ENCOUNTER 2021-02-09 14:28 | Emergency (ER) | payer MEDICARE, MEDICAID ==
[~2021-02-09] VITALS: Ht 193 cm; Wt 102.0 kg
[~2021-02-09 14:28] MED LIST changes: -BUSP5TAB20 PO; -ESCI10TA PO; -GABA-531 PO; -QUET200T PO; -QUET25TA PO; -TRAZ-257 PO
[2021-02-09] MEDS ORDERED: HALOPERIDOL 5 MG TABLET PO ONE (14:45)
[2021-02-09 15:00] LABS: BASOPHILS % (AUTO) 0.4 % (0.0-2.0); EOSINOPHILS % (AUTO) 0.9 % (1.0-6.0); HEMATOCRIT 45.1 % (41-53); HEMOGLOBIN 15.3 g/dL (13.5-17.5); LYMPHOCYTES # (AUTO) 1.9 K/uL (1.0-4.8); LYMPHOCYTES % (AUTO) 17.4 % (22.0-44.0); MEAN CORPUSCULAR HEMOGLOBIN 32.6 pg (26.0-34.0); MEAN CORPUSCULAR HGB CONC 33.9 G/dL (31.0-37.0); MEAN CORPUSCULAR VOLUME 96 fL (80-100); MONOCYTES % (AUTO) 9.1 % (2.0-9.0); NEUTROPHILS % (AUTO) 72.2 % (40.0-70.0); PLATELET COUNT (AUTO) 249 K/uL (150-450); RED BLOOD CELL COUNT(AUTO) 4.69 MIL/uL (4.50-5.90); RED CELL DISTRIBUTION WIDTH 13.2 % (11.5-14.5)
[2021-02-09 15:10] LABS: ANION GAP 16 mmol/L (8-16); CALCIUM, TOTAL 8.7 mg/dL (8.8-10.5); CARBON DIOXIDE 23 mmol/L (22-29); CHLORIDE 100 mmol/L (98-107); CREATININE 1.46 mg/dL (0.60-1.30); GLOMERULAR FILTR. RATE CALC 57 mL/min (>60); GLUCOSE,RANDOM 95 mg/dL (70-110); POTASSIUM 3.8 mmol/L (3.5-5.1); SODIUM SERUM 139 mmol/L (136-145); UREA NITROGEN, BLOOD 12 mg/dL (7-18)
[2021-02-09 15:18] LABS: ALBUMIN 3.8 g/dL (3.4-5.0); ASPARTATE AMINOTRANSFERASE 30 U/L (15-37); BILIRUBIN,TOTAL 0.3 mg/dL (0.1-1.0); TOTAL PROTEIN, SERUM 7.3 g/dL (6.4-8.2)
[2021-02-09 15:29] LABS: ALANINE AMINOTRANSFERASE 30 U/L (12-78); ALKALINE PHOSPHATASE 117 U/L (46-116)
[2021-02-09 15:44] LABS: COVID AG,FIA SOURCE NASOPHARYNGEAL
[2021-02-09 16:17] LABS: AMPHET/METH SCREEN,URINE NEGATIVE (NEGATIVE); BARBITURATE SCREEN, URINE NEGATIVE (NEGATIVE); BENZODIAZEPINES SCREEN,URINE NEGATIVE (NEGATIVE); CANNABINOID SCREEN,URINE NEGATIVE (NEGATIVE); COCAINE SCREEN,URINE NEGATIVE (NEGATIVE); METHADONE SCREEN, URINE NEGATIVE (NEGATIVE); OPIATE SCREEN,URINE NEGATIVE (NEGATIVE); PHENCYCLIDINE SCREEN,URINE NEGATIVE (NEGATIVE)
[2021-02-09 17:38] VITALS: BP 130/87
== END 2021-02-09 17:58 | disposition home or self-care (01) ==
LOC: EMS 14:32
DX: F25.1 Schizoaffective disorder, depressive type (principal); F17.210 Nicotine dependence, cigarettes, uncomplicated; Z79.899 Other long term (current) drug therapy; Z20.822 Contact with and (suspected) exposure to COVID-19
CPT/HCPCS: 36415; 80053; 80307; 85025; 87426; 99284; G0480

== ENCOUNTER 2021-10-10 20:27 | Inpatient (IN) | payer MEDICARE, MEDICAID ==
[~2021-10-10] VITALS: Ht 190.5 cm; Wt 121.1 kg
[2021-10-10 21:58] LABS: MEAN CORPUSCULAR HGB CONC 34.5 G/dL (31.0-37.0)
[2021-10-10 22:02] LABS: BASOPHILS % (AUTO) 0.3 % (0.0-2.0); EOSINOPHILS % (AUTO) 0.7 % (1.0-6.0); HEMATOCRIT 43.5 % (41-53); LYMPHOCYTES # (AUTO) 2.4 K/uL (1.0-4.8); LYMPHOCYTES % (AUTO) 24.9 % (22.0-44.0); MEAN CORPUSCULAR HEMOGLOBIN 32.4 pg (26.0-34.0); MEAN CORPUSCULAR VOLUME 94 fL (80-100); MONOCYTES # (AUTO) 0.7 K/uL (0.1-1.0); MONOCYTES % (AUTO) 7.4 % (2.0-9.0); NEUTROPHILS # (AUTO) 6.5 K/uL (1.8-7.7); NEUTROPHILS % (AUTO) 66.7 % (40.0-70.0); PLATELET COUNT (AUTO) 249 K/uL (150-450); RED BLOOD CELL COUNT(AUTO) 4.63 MIL/uL (4.50-5.90); RED CELL DISTRIBUTION WIDTH 13.2 % (11.5-14.5)
[2021-10-10 22:07] LABS: ANION GAP 12 mmol/L (8-16); CALCIUM, TOTAL 9.3 mg/dL (8.8-10.5); CARBON DIOXIDE 28 mmol/L (22-29); CHLORIDE 99 mmol/L (98-107); GLOMERULAR FILTR. RATE CALC > 60 mL/min (>60); GLUCOSE,RANDOM 103 mg/dL (70-110); POTASSIUM 3.7 mmol/L (3.5-5.1); SODIUM SERUM 139 mmol/L (136-145); UREA NITROGEN, BLOOD 6 mg/dL (7-18)
[2021-10-10 22:13] LABS: ALANINE AMINOTRANSFERASE 17 U/L (12-78); ALBUMIN 3.8 g/dL (3.4-5.0); ALKALINE PHOSPHATASE 96 U/L (46-116); ASPARTATE AMINOTRANSFERASE 15 U/L (15-37); BILIRUBIN,TOTAL 0.4 mg/dL (0.1-1.0); TOTAL PROTEIN, SERUM 7.4 g/dL (6.4-8.2)
[2021-10-10 23:06] LABS: COVID AG,FIA SOURCE NASAL SWAB
[2021-10-10 23:34] LABS: AMPHET/METH SCREEN,URINE NEGATIVE (NEGATIVE); BARBITURATE SCREEN, URINE NEGATIVE (NEGATIVE); BENZODIAZEPINES SCREEN,URINE NEGATIVE (NEGATIVE); CANNABINOID SCREEN,URINE NEGATIVE (NEGATIVE); COCAINE SCREEN,URINE NEGATIVE (NEGATIVE); METHADONE SCREEN, URINE NEGATIVE (NEGATIVE); OPIATE SCREEN,URINE NEGATIVE (NEGATIVE)
[2021-10-10 23:42] LABS: PHENCYCLIDINE SCREEN,URINE NEGATIVE (NEGATIVE)
[2021-10-11] MEDS ORDERED: ZOLPIDEM TARTRATE 10 MG TABLET PO PRN (04:30)
[2021-10-11 05:33] VITALS: BP 123/80
[2021-10-11 08:14] VITALS: BP 115/65
[2021-10-11] MEDS: DIVALPROEX SODIUM 250 MG DR TABLET PO SCH ×2 (10:14→16:56)
[2021-10-11] MEDS: QUEtiapine FUMARATE 100 MG TABLET PO SCH ×2 (10:14→16:56)
[2021-10-11] MEDS: ESCITALOPRAM OXALATE 10 MG TABLET PO SCH (10:17)
[2021-10-11] MEDS ORDERED: IBUPROFEN 400 MG TABLET PO PRN (11:30)
[2021-10-11] MEDS ORDERED: CloNIDine HCL 0.1 MG TABLET PO PRN (11:30)
[2021-10-11] MEDS ORDERED: PETROLATUM,WHITE 28 GM JELLY TP PRN (11:30)
[2021-10-11] MEDS ORDERED: MAG HYDROX/AL HYDROX/SIMETH ES 30 ML SUSPENSION UDCUP PO PRN (11:30)
[2021-10-11] MEDS ORDERED: LOPERAMIDE HCL 2 MG CAPSULE PO PRN (11:30)
[2021-10-11] MEDS ORDERED: ACETAMINOPHEN 325 MG TABLET PO PRN (11:30)
[2021-10-11] MEDS ORDERED: DOCUSATE SODIUM 100 MG CAPSULE PO PRN (11:30)
[2021-10-11] MEDS ORDERED: MAGNESIUM HYDROXIDE SUSPENSION 30 ML UDCUP PO PRN (11:30)
[2021-10-11] MEDS ORDERED: GuaiFENesin/D-METHORPHAN [SUGAR-FREE] 200-20MG/10 ML SYRUP UDCUP PO PRN (11:30)
[2021-10-11] MEDS ORDERED: NICOTINE 14 MG/24 HOUR PATCH TD PRN (11:30)
[2021-10-11] MEDS ORDERED: ONDANSETRON HCL 4 MG TABLET PO PRN (11:30)
[2021-10-11] MEDS: HALOPERIDOL 5 MG TABLET PO PRN (15:35)
[2021-10-11] MEDS: LORazepam 2 MG TABLET PO PRN (15:35)
[2021-10-11] MEDS: ALBUTEROL SULFATE HFA 90 MCG/PUFF 8 GM INHALER IH PRN (15:53)
[2021-10-11 16:20] VITALS: BP 118/65
[2021-10-12] MEDS: HALOPERIDOL 5 MG TABLET PO PRN ×2 (08:06→13:38)
[2021-10-12] MEDS: QUEtiapine FUMARATE 100 MG TABLET PO SCH ×2 (08:06→16:23)
[2021-10-12] MEDS: LORazepam 2 MG TABLET PO PRN ×3 (08:06→18:08)
[2021-10-12] MEDS: DIVALPROEX SODIUM 250 MG DR TABLET PO SCH ×2 (08:07→16:23)
[2021-10-12] MEDS: ALBUTEROL SULFATE HFA 90 MCG/PUFF 8 GM INHALER IH PRN ×2 (08:07→14:07)
[2021-10-12] MEDS: ESCITALOPRAM OXALATE 10 MG TABLET PO SCH (08:07)
[2021-10-12 08:18] LABS: CHOL/HDL RATIO 5.6 (4.2-7.3)
[2021-10-12 08:36] VITALS: BP 112/74
[2021-10-12 16:11] VITALS: BP 118/60
[2021-10-13 08:07] VITALS: BP 111/52
[2021-10-13] MEDS: DIVALPROEX SODIUM 250 MG DR TABLET PO SCH (08:12)
[2021-10-13] MEDS: ESCITALOPRAM OXALATE 10 MG TABLET PO SCH (08:13)
[2021-10-13] MEDS: QUEtiapine FUMARATE 100 MG TABLET PO SCH (08:13)
[2021-10-13] MEDS: HALOPERIDOL 5 MG TABLET PO PRN (09:51)
[2021-10-13] MEDS ORDERED: QUET100T34 PO (10:21)
[2021-10-13] MEDS ORDERED: ESCI10 PO (10:21)
[2021-10-13] MEDS ORDERED: DIVA-111 PO (10:21)
[2021-10-13] MEDS: ALBUTEROL SULFATE HFA 90 MCG/PUFF 8 GM INHALER IH PRN (11:17)
== END 2021-10-13 14:32 | disposition home or self-care (01) | DRG 885 ==
LOC: EMS 20:32 → B2X 10-11 02:46
PROVIDERS: ADMIT Psychiatry & Neurology Psychiatry; ATTEND Psychiatry & Neurology Psychiatry
DX: F25.1 Schizoaffective disorder, depressive type (principal); R45.851 Suicidal ideations; F17.200 Nicotine dependence, unspecified, uncomplicated; I10 Essential (primary) hypertension; J44.9 Chronic obstructive pulmonary disease, unspecified; F32.A Depression, unspecified; F12.10 Cannabis abuse, uncomplicated; F17.210 Nicotine dependence, cigarettes, uncomplicated; Z20.822 Contact with and (suspected) exposure to COVID-19; Z71.51 Drug abuse counseling and surveillance of drug abuser; Z71.6 Tobacco abuse counseling; Z79.899 Other long term (current) drug therapy
CPT/HCPCS: 80053; 80061; 85025; 99285; G0480; J3535

== ENCOUNTER 2021-11-12 17:40 | Emergency (ER) | payer MEDICARE, OTHER ==
[~2021-11-12] VITALS: Ht 190.5 cm; Wt 113.6 kg
[~2021-11-12 17:40] MED LIST changes: +DIVA-111 PO; +ESCI10 PO; -FLUT1BLS IH; -IPRAHFA IH; +QUET100T34 PO
[2021-11-12 18:53] LABS: BASOPHILS % (AUTO) 0.4 % (0.0-2.0); EOSINOPHILS % (AUTO) 0.6 % (1.0-6.0); HEMATOCRIT 46.1 % (41-53); HEMOGLOBIN 15.9 g/dL (13.5-17.5); LYMPHOCYTES # (AUTO) 2.2 K/uL (1.0-4.8); LYMPHOCYTES % (AUTO) 22.3 % (22.0-44.0); MEAN CORPUSCULAR HEMOGLOBIN 32.4 pg (26.0-34.0); MEAN CORPUSCULAR HGB CONC 34.5 G/dL (31.0-37.0); MEAN CORPUSCULAR VOLUME 94 fL (80-100); MONOCYTES # (AUTO) 0.6 K/uL (0.1-1.0); MONOCYTES % (AUTO) 6.5 % (2.0-9.0); NEUTROPHILS # (AUTO) 6.9 K/uL (1.8-7.7); NEUTROPHILS % (AUTO) 70.2 % (40.0-70.0); PLATELET COUNT (AUTO) 257 K/uL (150-450); RED CELL DISTRIBUTION WIDTH 13.4 % (11.5-14.5)
[2021-11-12 19:04] LABS: ANION GAP 12 mmol/L (8-16); CALCIUM, TOTAL 9.2 mg/dL (8.8-10.5); CARBON DIOXIDE 25 mmol/L (22-29); CHLORIDE 102 mmol/L (98-107); CREATININE 1.01 mg/dL (0.60-1.30); GLOMERULAR FILTR. RATE CALC > 60 mL/min (>60); GLUCOSE,RANDOM 111 mg/dL (70-110); POTASSIUM 3.9 mmol/L (3.5-5.1); SODIUM SERUM 139 mmol/L (136-145); UREA NITROGEN, BLOOD 3 mg/dL (7-18)
[2021-11-12 19:09] LABS: ALANINE AMINOTRANSFERASE 27 U/L (12-78); ALBUMIN 3.9 g/dL (3.4-5.0); ALKALINE PHOSPHATASE 112 U/L (46-116); ASPARTATE AMINOTRANSFERASE 15 U/L (15-37); BILIRUBIN,TOTAL 0.4 mg/dL (0.1-1.0); TOTAL PROTEIN, SERUM 7.6 g/dL (6.4-8.2)
[2021-11-12] MEDS ORDERED: METO50 PO (19:22)
[2021-11-12] MEDS ORDERED: IPRAHFA IH (19:22)
[2021-11-12] MEDS ORDERED: FLUT1AER IH (19:22)
[2021-11-12] MEDS ORDERED: ALBU8HFA IH (19:22)
[2021-11-12 19:47] LABS: COVID AG,FIA SOURCE NASAL SWAB
[2021-11-12 20:29] LABS: AMPHET/METH SCREEN,URINE NEGATIVE (NEGATIVE); BARBITURATE SCREEN, URINE NEGATIVE (NEGATIVE); BENZODIAZEPINES SCREEN,URINE NEGATIVE (NEGATIVE); CANNABINOID SCREEN,URINE NEGATIVE (NEGATIVE); COCAINE SCREEN,URINE NEGATIVE (NEGATIVE); METHADONE SCREEN, URINE NEGATIVE (NEGATIVE); OPIATE SCREEN,URINE NEGATIVE (NEGATIVE)
[2021-11-12 20:41] LABS: PHENCYCLIDINE SCREEN,URINE NEGATIVE (NEGATIVE)
[2021-11-12 21:15] VITALS: BP 132/75
== END 2021-11-12 21:36 | disposition home or self-care (01) ==
LOC: EMS 17:40
DX: F25.9 Schizoaffective disorder, unspecified (principal); F32.9 Major depressive disorder, single episode, unspecified; F17.210 Nicotine dependence, cigarettes, uncomplicated; F12.90 Cannabis use, unspecified, uncomplicated; Z20.822 Contact with and (suspected) exposure to COVID-19
CPT/HCPCS: 36415; 80053; 80307; 85025; 87426; 99284; G0480